=== PATIENT | male | born 1990 | race Caucasian/White ===

== ENCOUNTER → 2022-08-27 | Outpatient (CLI) | payer OTHER, SELFPAY ==
[2022-08-27 15:58] LABS: Vitamin B12 479 pg/mL (211-911); Vitamin D,25 Hydroxy 21.7 ng/mL
[2022-08-27 16:03] LABS: Absolute Lymphocyte Count 2.41 X10^3/uL (0.83-4.51); Absolute Neutrophil Count 2.5 X10^3/uL (2.0-7.7); Basophil# 0.05 X10^3/uL; Basophil% 0.9 % (0-1); Eosinophil# 0.18 X10^3/uL; Eosinophils% 3.2 % (0-5); Hematocrit 44.8 % (40-54); Hemoglobin 14.8 g/dL (13.0-16.5); Lymphocyte # 2.41 X10^3/ul (0.83-4.51); Lymphocyte % 42.2 % (19-41); Mean Corpuscular Hgb 29.5 pg (27.0-32.0); Mean Corpuscular Volume 89.2 fL (80-94); Mean Platelet Vol. 10.3 fl (6.2-12.0); Monocyte# 0.58 X10^3/uL; Monocyte% 10.2 % (0-10); NRBC Flagged by Analyzer 0 % (0-5); Neutrophil # 2.48 X10^3/uL (2.7-7.7); Neutrophil % 43.3 % (47-70); Platelet Count 295 K/mm3 (150-450); RBC Distribution Width CV 12.5 % (11.6-14.6); RBC Distribution Width SD 40.8 fl (35.1-43.9); Red Blood Count 5.02 M/mm3 (4.6-6.2); White Blood Count 5.7 K/mm3 (4.4-11.0)
[2022-08-27 16:16] LABS: ALB/GLOB Ratio 1.1 RATIO (0.9-2.4); AST(SGOT) 33 U/L (15-37); Alanine Aminotransfer ALT/SGPT 45 U/L (16-61); Albumin, Serum 4.2 g/dL (3.2-5.0); Alkaline Phosphatase 57 U/L (45-117); Anion Gap 5 (5-15); BUN 19 mg/dL (7-18); BUN/Creat Ratio 16.2 RATIO (10-20); Chloride 107 mmol/L (98-107); Creatinine, Serum 1.17 mg/dL (0.70-1.30); EST Glomerular Filtration Rate 78 mL/min (>60); Est Glom Filt Rate - Afr Amer 94 mL/min (>60); Globulin 3.8 g/dL (2.2-4.2); Glucose 96 mg/dL (74-106); Potassium 4.1 mmol/L (3.5-5.1); Sodium Level 140 mmol/L (136-145); T4 Free Direct 1.04 ng/dL (0.76-1.46); Thyroid Stim Hormone (TSH) 1.44 uIU/mL (0.358-3.74)
== END | disposition home or self-care (01) ==
PROVIDERS: PCP Family Medicine; Referring Provider Family Medicine; Visit Provider Family Medicine
DX: R53.83 Other fatigue (principal)
CPT/HCPCS: 36415; 80053; 82306; 82607; 84439; 84443; 85025

== ENCOUNTER 2023-08-27 10:30 | Emergency (ER) | payer OTHER, SELFPAY ==
[2023-08-27 10:30] VITALS: BP 139/88; PULSE 103; RESP 20; TEMP 37.7; O2SAT 97; BMI 23.6
--- NOTE | 2023-08-27 10:54 | EKG12_ITS ---
Test Reason : SOB Blood Pressure : / mmHG Vent. Rate : 094 BPM Atrial Rate : 094 BPM P-R Int : 146 ms QRS Dur : 080 ms QT Int : 352 ms P-R-T Axes : 070 053 034 degrees QTc Int : 440 ms Normal sinus rhythm Possible Left atrial enlargement Borderline ECG Confirmed by KLAUDIA RIVERS, NANCY ([id number]), managing editor EDUARDO MERCER ([id number]) on 08/28/2023 9:14:19 AM Referred By: Confirmed By:NANCY RUDOLPH MD
--- NOTE | 2023-08-27 10:55 | EX.ED.DYSGE1 ---
HPI History of Present Illness Chief Complaint: Shortness of Breath Informant: patient Onset/Context/Timing Onset: Days Narrative Narrative: Patient presents secondary to pleuritic chest pain and shortness of breath. He became ill on Thursday with cough, congestion, fever. He was seen at [facility] on Thursday and diagnosed with influenza B. Reportedly his discharge paperwork also commented that he had pleurisy. Patient states has been taking Tylenol and ibuprofen intermittently to help control his symptoms. He continues to feel short of breath with pleuritic chest pain. This morning when he got up pain worsened so he presents to the emergency room. He has not had significant vomiting or diarrhea. PFSH [facility] Medical History no medical history no medical history Home Medications prednisone 20 mg tablet 40 mg (2 x 20 mg) PO DAILY #8 tabs 08/27/23 [Rx Last Taken Unknown] Allergy/AdvReac Type Severity Reaction Status Date / Time No Known Allergies Allergy Verified 08/27/23 10:31 Social History Smoking Status: Never smoker alcohol intake: never ROS ROS ED Constitutional Constitutional ED: Reports chills and fever(s) Eyes Eyes: Denies change in vision or discharge from eye(s) ENT ENT ED: Denies discharge from eye(s), rhinorrhea or sore throat Cardiovascular Cardiovascular: Reports chest pain; Denies palpitations Respiratory/Chest Respiratory/Chest: Reports cough and dyspnea Gastrointestinal Gastrointestinal: Denies abdominal pain, nausea or vomiting Genitourinary Genitourinary ED: Denies dysuria Musculoskeletal Musculoskeletal: Reports myalgias; Denies back pain or extremity pain Integumentary Denies Abrasions or rash Neurologic Neurologic: Reports weakness; Denies headache(s) Psychiatric Psychiatric: Denies anxiety or depression Allergic/Immunologic Allergic/Immunologic ED: Denies lip swelling or urticaria EXAM Physical Exam Const Vital Signs: 08/27/23 10:30 08/27/23 10:47 Temperature 99.8 F H Temperature Source Temporal Pulse Rate 103 H Respiratory Rate 20 H Respiratory Effort Normal Non-Labored Respiratory Depth Normal Blood Pressure 139/88 H Blood Pressure Mean 105 Pulse Ox 97 Oxygen Delivery Method Room Air Positive well nourished and well developed General Appearance ED: well developed HEENT Reports moist mucous membranes Eyes EOMs intact bilaterally Chest Wall inspection of chest normal and palpation of chest normal Resp normal respiratory effort and clear to auscultation bilaterally Cardio Rate: tachycardic GI non-tender Palpation: soft Extremity normal to inspection Extremity Narrative: No calf tenderness or edema. Neuro oriented x3 and no sensory deficits noted Motor Exam: strength 5/5 throughout Psych mental status grossly normal Skin no rashes or lesions noted MDM MDM MDM Narrative Medical decision making narrative: IV line established. Patient given IV fluids. Toradol and Solu-Medrol also given. Labwork obtained to evaluate for leukocytosis, anemia, and electrolyte derangement. Chest x-ray obtained to evaluate for acute lung pathology, cardiac size, or mediastinal abnormality. History & Record Review Discussion w/independent historian: Patient Lab Data Attestation: I reviewed the patient's lab results. Labs: Laboratory Results - last 24 hr 08/27/23 11:15 WBC 2.2 L RBC 4.89 Hgb 14.4 Hct 42.9 MCV 87.7 MCH 29.4 MCHC 33.6 RDW Std Deviation 39.2 RDW Coeff of Judy 12.1 Plt Count 182 MPV 9.6 Immature Gran % (Auto) 0.000 Neut % (Auto) 46.0 L Lymph % (Auto) 35.2 [place] % (Auto) 17.8 H Eos % (Auto) 0.5 Baso % (Auto) 0.5 Absolute Neuts (auto) 1.0 L Absolute Lymphs (auto) 0.77 L Nucleated RBC % 0 D-Dimer Quant (PE/DVT) 0.36 Sodium 139 Potassium 3.9 Chloride 107 Carbon Dioxide 27.0 Anion Gap 5 BUN 9 Creatinine 0.97 Estim Creat Clear Calc 113.93 Est GFR (MDRD) Af Amer 115 Est GFR (MDRD) Non-Af 95 BUN/Creatinine Ratio 9.2 L Glucose 93 Calcium 8.9 Radiography Chest X-Ray - ED: 1 View, Read by ED Physician, Normal, Heart, Lungs and Mediastinum EKG Initial EKG: Attestation: I personally reviewed and interpreted this EKG as follows: Interpretation: Sinus Rhythm (Sinus at 94 with no acute ischemia.) Treatment and Re-Evaluation :: CBC was white count of 2.2 with 46% neutrophils and 17% monocytes. This is consistent with his recent diagnosis of influenza. Hemoglobin is normal at 14.4. Chemistry studies are unremarkable. D-dimer is normal at 0.36. Portable chest x-ray per my interpretation reveals no evidence of focal infiltrate. No pneumothorax. Radiology interpretation reviewed and agrees. EKG is sinus rhythm with no acute ischemia. On repeat evaluation patient resting comfortably. Heart rate is in the mid 80s. He has not been hypoxic. I will write him a course of prednisone to help with the pleuritic chest pain. He will otherwise continue Tylenol and ibuprofen. Return instructions given. Discharge Plan Triage Chief Complaint: Shortness of Breath ED Provider: Cecelia Bates Dx/Rx/DC Orders Clinical Impression: Influenza B Instructions: ED Influenza (Adult) Prescriptions: New prednisone 20 mg tablet 40 mg PO DAILY Qty: 8 0RF Primary Care Provider: Vadim Gonzalez Referrals: Richard Mason MD [Med Staff - Senior Chemical Engineer] - Vadim Gonzalez DO [Primary Care Provider] - 1 Week Disposition Disposition: Home, Self Care
[2023-08-27] MEDS: 0.9% Normal Saline (1000mL) 1,000 ML 1000 ML IV (11:12)
[2023-08-27] MEDS: Ketorolac 15 MG/ML Vial IV (11:13)
[2023-08-27] MEDS: MethylPREDNISolone 125 MG/2 ML Vial 80 MG IV (11:14)
--- NOTE | 2023-08-27 11:20 | RAD_ITS ---
STUDY: X-RAY CHEST REASON FOR EXAM: Male, 33 years old. Sob TECHNIQUE: Single AP portable view of the chest. COMPARISON: None. FINDINGS: The lungs are clear and expanded. There is no demonstrated pleural abnormality. Normal size heart. Normal mediastinum and antolin. Normal visualized pulmonary arteries. Normal visualized aortic arch and descending thoracic aorta. Normal visualized thoracic spine. Normal visualized ribs, clavicles, and shoulders. There is no demonstrated abnormality of the visualized soft tissue structures of the upper abdomen. RAD/Chest 1 View (Portable) IMPRESSION: Normal x-ray examination of the chest. Electronically Signed: Shivam Kruger MD at 12:04 EDT ,
--- NOTE | 2023-08-27 11:20 | ED.RN ---
NO OLD EKG
[2023-08-27 11:25] LABS: Absolute Lymphocyte Count 0.77 X10^3/uL (0.83-4.51); Basophil# 0.01 X10^3/uL; Basophil% 0.5 % (0-1); Eosinophil# 0.01 X10^3/uL; Eosinophils% 0.5 % (0-5); Hematocrit 42.9 % (40-54); Hemoglobin 14.4 g/dL (13.0-16.5); Lymphocyte # 0.77 X10^3/ul (0.83-4.51); Lymphocyte % 35.2 % (19-41); Mean Corp Hgb Conc 33.6 g/dL (32-36); Mean Corpuscular Hgb 29.4 pg (27.0-32.0); Mean Corpuscular Volume 87.7 fL (80-94); Mean Platelet Vol. 9.6 fl (6.2-12.0); Monocyte# 0.39 X10^3/uL; Monocyte% 17.8 % (0-10); NRBC Flagged by Analyzer 0 % (0-5); Neutrophil # 1.01 X10^3/uL (2.7-7.7); Platelet Count 182 K/mm3 (150-450); RBC Distribution Width CV 12.1 % (11.6-14.6); RBC Distribution Width SD 39.2 fl (35.1-43.9); Red Blood Count 4.89 M/mm3 (4.6-6.2); White Blood Count 2.2 K/mm3 (4.4-11.0)
[2023-08-27 11:35] LABS: D-Dimer Quantitative (DVT/PE) 0.36 FEU/ug/m (0.27-0.49)
[2023-08-27 11:38] LABS: Anion Gap 5 (5-15); BUN 9 mg/dL (7-18); BUN/Creat Ratio 9.2 RATIO (10-20); Calcium,Total 8.9 mg/dL (8.5-10.1); Chloride 107 mmol/L (98-107); Creatinine, Serum 0.97 mg/dL (0.70-1.30); EST Glomerular Filtration Rate 95 mL/min (>60); Est Glom Filt Rate - Afr Amer 115 mL/min (>60); Estimated Creatinine Clearance 113.93 ml/min; Glucose 93 mg/dL (74-106); Potassium 3.9 mmol/L (3.5-5.1); Sodium Level 139 mmol/L (136-145)
[2023-08-27 12:27] VITALS: BP 127/71; PULSE 89; RESP 18; TEMP 36.8; O2SAT 99
== END 2023-08-27 12:29 | disposition home or self-care (01) ==
PROVIDERS: Emergency Provider Emergency Medicine; Visit Provider Emergency Medicine
DX: R06.02 Shortness of breath (principal); J10.1 Influenza due to other identified influenza virus with other respiratory manifestations
CPT/HCPCS: 71045; 80048; 85025; 85379; 93005; 96361; 96374; 96375; 99284; J7030; A4216

== ENCOUNTER 2024-07-28 12:45 | Emergency (ER) | payer SELFPAY ==
[2024-07-28 12:46] VITALS: BP 111/81; PULSE 81; RESP 16; TEMP 36.4; O2SAT 98; BMI 25.8
--- NOTE | 2024-07-28 13:23 | EDS_ITS ---
HPI History of Present Illness Chief Complaint: Lower Extremity Injury Informant: patient and spouse/S.O. Narrative Narrative: 34-year-old male presenting to the emergency room with right foot injury. 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 White fell striking his right foot. He states he took off his shoe and noticed that the dorsum of the foot was swelling significantly. It is subsequently gone down and has become ecchymotic. He notes pain with trying to bear weight. He denies any other injuries PFSH PFSH Home Medications ?Medication ?Instructions ?Recorded ?Last Taken ?Type prednisone 20 mg tablet 40 mg (2 x 20 mg) PO DAILY # 8 tabs 08/27/23 Unknown Rx Allergy/AdvReac Type Severity Reaction Status Date / Time No Known Allergies Allergy Verified 07/28/24 12:46 Social History Smoking Status: Never smoker alcohol intake: never ROS ROS ED Constitutional Constitutional ED: Denies chills or weight loss Eyes Eyes: Denies change in vision or diplopia ENT ENT ED: Denies ear pain, rhinorrhea or sore throat Cardiovascular Cardiovascular: Denies chest pain, orthopnea, palpitations or racing heartbeat Respiratory/Chest Respiratory/Chest: Denies cough, dyspnea or orthopnea Gastrointestinal Gastrointestinal: Denies abdominal pain, diarrhea, nausea or vomiting Genitourinary Genitourinary ED: Denies dysuria, hematuria or urinary frequency Musculoskeletal Musculoskeletal: Reports other Details: See history of present illness ; Denies arthralgias or myalgias Integumentary Denies abscess or rash Neurologic Neurologic: Denies headache(s) or weakness Psychiatric Psychiatric: Denies anxiety, depression, suicidal ideation or suicidal thoughts Endocrine Endocrinology: Denies polydipsia, polyphagia or polyuria Allergic/Immunologic Allergic/Immunologic ED: Denies mouth swelling, tongue swelling or urticaria EXAM Physical Exam Const Vital Signs: 07/28/24 12:46 07/28/24 14:02 Temperature 97.6 F L 97.6 F L Temperature Source Temporal Pulse Rate 81 65 Respiratory Rate 16 18 Blood Pressure 111/81 H 122/85 H Blood Pressure Mean 91 97 Pulse Ox 98 99 Oxygen Delivery Method Room Air Positive well nourished and well developed General Appearance ED: well developed and NAD HEENT Reports normocephalic, head/scalp atraumatic and moist mucous membranes Eyes PERRL and EOMs intact bilaterally Neck no lymphadenopathy, supple and no JVD Resp normal respiratory effort and clear to auscultation bilaterally Cardio regular rate, regular rhythm and no murmurs GI normal to inspection, nondistended, normoactive bowel sounds and non-tender Palpation: soft Back/Spine no CVA tenderness and normal ROM Extremity Extremity Narrative: There is mild swelling and ecchymosis over the dorsum of the right foot. Point tenderness along the second and third metatarsal there is no tenderness along the fifth metatarsal and the first metatarsal. Plantar surface appears without trauma. Distally the toes appear intact excellent capillary refill no trauma to the toes. General Extremety ED: Negative for edema General Extremity: Negative for edema Neuro oriented x3 and CN's II-XII intact bilaterally Sensorium / Orientation: alert Motor Exam: strength 5/5 throughout Psych mental status grossly normal Mood & Affect: Negative for depressed or tearful Skin no rashes or lesions noted and no wounds MDM MDM MDM Narrative Medical decision making narrative: Differential diagnosis includes hematoma contusion fracture ligamentous injury tendon injury neurovascular injury My independent interpretation of the plain films of the right foot is no acute fracture. Radiology concurs. Patient will be given a set of crutches. Recommendation for ice elevation Tylenol or Motrin for pain. Follow-up 10 to 14 days if not improving. Advance weightbearing as tolerated History & Record Review Discussion w/independent historian: Patient Radiography Diagnostic Testing: Clinical Impression(s) from Imaging Studies Foot X-Ray 07/28/24 13:25 IMPRESSION: Minimal degenerative changes are seen of the 1st metatarsophalangeal joint, without significant joint narrowing or hallux valgus deformity. Minimal degenerative changes are also seen of the 1st tarsal-metatarsal joint, without associated joint narrowing. No evidence of inflammatory arthritis. Normal contour of the Achilles tendon is seen on the lateral view. No ankle joint effusion is noted. No fracture or dislocation is seen. If clinical concern persists, short-term follow-up imaging may be obtained to rule out a currently occult fracture. Reading Location: [address] Discharge Plan Triage Chief Complaint: Lower Extremity Injury ED Provider: Allen Askew Dx/Rx/DC Orders Clinical Impression: Contusion of foot, right, Hematoma of right foot Instructions: ED Crush Injury, Foot/Toe Prescriptions: No Action prednisone 20 mg tablet 40 mg PO DAILY Qty: 8 0RF Primary Care Provider: Vadim Gonzalez Referrals: Vadim Gonzalez DO [Primary Care Provider] - 10-14 Days if not better Print Language: Arabic Disposition Disposition: Home, Self Care Discharge Date/Time: 07/28/24 14:03
--- NOTE | 2024-07-28 13:25 | RAD_ITS ---
PROCEDURE: FOOT MIN 3 VIEWS REASON FOR EXAM: Trauma. TECHNIQUE: Three-view right foot COMPARISON: None. RAD/Foot min 3 Views IMPRESSION: Minimal degenerative changes are seen of the 1st metatarsophalangeal joint, wit hout significant joint narrowing or hallux valgus deformity. Minimal degenerative changes are also seen of the 1st tarsal-metatarsal joint, without associated joint narrowing. No evidence of inflammatory arthritis. Normal contour of the Achilles tendon i s seen on the lateral view. No ankle joint effusion is noted. No fracture or dislocation is seen. If clinical concern persists, short-term follow-up imaging may be obtained to r ule out a currently occult fracture. Reading Location: [id number]
[2024-07-28 14:02] VITALS: BP 122/85; PULSE 65; RESP 18; TEMP 36.4; O2SAT 99
== END 2024-07-28 14:03 | disposition home or self-care (01) ==
PROVIDERS: Emergency Provider Emergency Medicine; Visit Provider Emergency Medicine
DX: S90.31XA Contusion of right foot, initial encounter (principal); W19.XXXA Unspecified fall, initial encounter; Y99.0 Civilian activity done for income or pay
CPT/HCPCS: 73630; 99283